=== PATIENT | male | born 1950 | race Caucasian/White ===

== ENCOUNTER 2021-10-25 15:14 | Emergency (ER) | payer MEDICARE ==
[~2021-10-25] VITALS: Wt 98.9 kg
[~2021-10-25 15:14] MED LIST: 'TENORMIN50 MG PO; AMBIEN CR12.5 MG PO; CLONAZEPAM2 MG PO; FUROSEMIDE40 MG PO; IMITREX ST4 MG/0.5 M SC; OMEPRAZOLE D/R20 MG PO; OXYCONTIN; OXYCONTIN30 MG; RAPAMUNE1 MG; RITE AID MAGNE500 MG PO
[2021-10-25] MEDS ORDERED: CEPHALEXIN500 M1 PO ×2 (16:11→16:49)
== END 2021-10-25 17:21 | disposition home or self-care (01) ==
LOC: ED 15:14
DX: S81.011A Laceration without foreign body, right knee, initial encounter (principal); S61.214A Laceration without foreign body of right ring finger without damage to nail, initial encounter; Z88.7 Allergy status to serum and vaccine; Z79.899 Other long term (current) drug therapy; Y29.XXXA Contact with blunt object, undetermined intent, initial encounter; Y93.89 Activity, other specified; Y92.89 Other specified places as the place of occurrence of the external cause; Y99.8 Other external cause status

== ENCOUNTER → 2021-11-13 | Outpatient (CLI) | payer MEDICARE ==
[~2021-11-13] MED LIST changes: +CEPHALEXIN500 M1 PO
== END ==
LOC: WOUNDCARE 10:17
PROVIDERS: ATTEND Nurse Practitioner Family
DX: S81.011A Laceration without foreign body, right knee, initial encounter (principal); S61.215A Laceration without foreign body of left ring finger without damage to nail, initial encounter; Z88.7 Allergy status to serum and vaccine; Z79.899 Other long term (current) drug therapy; Z86.19 Personal history of other infectious and parasitic diseases; Z94.4 Liver transplant status; Y29.XXXA Contact with blunt object, undetermined intent, initial encounter; Y93.89 Activity, other specified; Y92.89 Other specified places as the place of occurrence of the external cause; Y99.8 Other external cause status